=== PATIENT | male | born 1970 | race Caucasian/White ===

== ENCOUNTER → 2019-03-09 | Outpatient (CLI) | payer OTHER ==
[~2019-03-09] MED LIST: ACYC800; BUPR150T2; CYCL10 PO; ERYT.5TO OD; HYDACE5 PO; RXSULTRIDS PO; SULTRIDS PO
[2019-03-10 13:26] LABS: Stool Occult Bld Immuno 1 Negative (NEGATIVE); Stool Occult Bld Immuno 2 Negative (NEGATIVE)
== END | disposition home or self-care (01) ==
LOC: LAB EV 06:15
PROVIDERS: Internal Medicine Gastroenterology
DX: Z12.11 Encounter for screening for malignant neoplasm of colon (principal); K76.0 Fatty (change of) liver, not elsewhere classified; Z83.71 Family history of colonic polyps
CPT/HCPCS: G0328

== ENCOUNTER 2019-05-04 06:20 | Day surgery (SDC) | payer OTHER ==
[~2019-05-04] VITALS: Ht 177.8 cm; Wt 128.3 kg
[~2019-05-04 06:20] MED LIST changes: +Aspir 8181 MG PO; +Glucophage1000 MG PO; +Glucotrol Xl5 MG PO; +Indocin50 MG PO; +JARDIANCE10 MG PO
[2019-05-04] MEDS ORDERED: PRAV20 PO (06:42)
== END 2019-05-04 08:43 | disposition home or self-care (01) ==
LOC: ORSCSDS 06:20
PROVIDERS: Podiatrist Foot & Ankle Surgery
PROC: 0QSP04Z Reposition Left Metatarsal with Internal Fixation Device, Open Approach (ICD-10-PCS; principal; 2019-05-04 07:30)
PROC: 0MBT0ZZ Excision of Left Foot Bursa and Ligament, Open Approach (ICD-10-PCS; principal; 2019-05-04 07:30)
DX: M1A.9XX1 Chronic gout, unspecified, with tophus (tophi) (principal); M21.612 Bunion of left foot; E11.9 Type 2 diabetes mellitus without complications; K76.0 Fatty (change of) liver, not elsewhere classified; G47.33 Obstructive sleep apnea (adult) (pediatric); Z79.899 Other long term (current) drug therapy; Z79.84 Long term (current) use of oral hypoglycemic drugs; Z79.82 Long term (current) use of aspirin; E78.5 Hyperlipidemia, unspecified; E66.01 Morbid (severe) obesity due to excess calories; Z68.41 Body mass index [BMI] 40.0-44.9, adult
CPT/HCPCS: 82947; 88305; 89060; J0171; J0690; J2704; J3010; J7120

== ENCOUNTER 2023-08-28 16:55 | Emergency (ER) | payer OTHER ==
[~2023-08-28] VITALS: Ht 177.8 cm; Wt 113.4 kg
[~2023-08-28 16:55] MED LIST changes: +PRAV20 PO
[2023-08-28 18:05] LABS: BASOPHILS ABSOLUTE AUTO 0.09 K/mm3 (0.00-0.23); BASOPHILS PERCENT AUTO 1 % (0-2); EOSINOPHILS ABSOLUTE AUTO 0.22 K/mm3 (0.00-0.68); EOSINOPHILS PERCENT AUTO 3 % (0-6); Hematocrit 47.1 % (37.0-53.0); Hemoglobin 16.7 g/dL (13.5-17.5); IMMATURE GRAN ABSOLUTE AUTO 0.01 K/mm3 (0.00-0.10); IMMATURE GRAN PERCENT AUTO 0 % (0-1); LYMPHOCYTES ABSOLUTE AUTO 3.19 K/mm3 (0.84-5.20); LYMPHOCYTES PERCENT AUTO 42 % (21-46); MONOCYTES ABSOLUTE AUTO 0.67 K/mm3 (0.16-1.47); MONOCYTES PERCENT AUTO 9 % (4-13); Mean Corpuscular HGB 32.7 pg (26.0-34.0); Mean Corpuscular HGB Conc 35.5 g/dL (31.5-36.5); Mean Corpuscular Volume 92 fL (80-100); Mean Platelet Volume 10.1 fL (9.1-12.4); NEUTROPHILS ABSOLUTE AUTO 3.45 K/mm3 (1.96-9.15); NEUTROPHILS PERCENT AUTO 45 % (41-73); Platelet Count 174 K/mm3 (150-400); RDW Coefficient Variation 12.8 % (11.7-14.2); White Blood Cell Count 7.63 K/mm3 (4.00-11.30)
[2023-08-28] MEDS ORDERED: FEBUXOSTAT40 MG PO (18:22)
[2023-08-28] MEDS ORDERED: Ondansetron HCl 2 MG / ML 2ML Vial IV ONE (19:00)
[2023-08-28] MEDS ORDERED: HYDROmorphone HCl/Pf 1MG SYR IV ONE (19:00)
[2023-08-28 19:06] LABS: Albumin, Blood 4.6 g/dL (3.4-5.0); Albumin/Globulin Ratio 1.4 (0.8-1.8); Bilirubin, Total 0.7 mg/dL (0.1-1.0); Bun/Creatinine Ratio 22.3 (12.0-20.0); Calcium, Blood 9.5 mg/dL (8.5-10.1); Creatinine, Blood 0.94 mg/dL (0.60-1.20); Globulin, Blood 3.3 g/dL (2.2-4.0); Potassium, Blood 4.3 mmol/L (3.5-5.5); Total Protein, Blood 7.9 g/dL (6.4-8.2)
[2023-08-28] MEDS ORDERED: Ketorolac Tromethamine 30mg Vial IV ONE (19:15)
[2023-08-28] MEDS ORDERED: NS 1,000 ML IV SCH (19:15)
[2023-08-28] MEDS ORDERED: Tamsulosin HCl 0.4 MG Cap PO ONE (19:15)
[2023-08-28 20:19] LABS: Source, Urine Clean Catch
[2023-08-28 20:22] LABS: Bilirubin, Urine Neg (Neg); Blood, Urine 3+ (Neg); Glucose Qualitative, Urine 4+ (Neg); Ketones, Urine 4+ (Neg); Leukocyte Esterase, Urine Neg (Neg); Nitrite, Urine Neg (Neg); Protein, Urine 1+ (Neg); Urobilinogen, Urine NORM (Normal); pH, Urine 6.5 (5.0-8.0)
[2023-08-28 20:39] LABS: Appearance, Urine Clear (Clear); Color, Urine Yellow (P-Yellow)
[2023-08-28] MEDS ORDERED: Metoclopramide HCl 5MG / ML 2ML Vial IV ONE (20:40)
[2023-08-28] MEDS ORDERED: OxyCODONE 10/Acetamin 325 TABLET PO ONE (20:40)
[2023-08-28 20:45] LABS: Bacteria Not Seen /hpf; Squamous Epithelial Cells Not Seen /hpf (Few); White Blood Cells, Urine 0-2 /hpf (0-5)
[2023-08-28] MEDS ORDERED: TAMS.4ER PO (22:14)
[2023-08-28] MEDS ORDERED: OXAYDO5 M1 PO (22:14)
[2023-08-28] MEDS ORDERED: ONDA4ODT MM (22:14)
[2023-08-28 22:15] VITALS: BP 104/69
[2023-08-28] MEDS ORDERED: RX Prepack 2 Tabs Ondansetron ODT 4MG UD ONE (22:15)
[2023-08-28] MEDS ORDERED: RX Prepack 6 Tabs Oxycodone 5mg UD ONE (22:15)
== END 2023-08-29 01:06 | disposition home or self-care (01) ==
LOC: ER 16:55
PROVIDERS: Physician Assistant; Student in an Organized Health Care Education/Training Program
DX: N13.2 Hydronephrosis with renal and ureteral calculous obstruction (principal); Z79.899 Other long term (current) drug therapy
CPT/HCPCS: 74177; 80053; 81001; 85025; 96361; 96374-59; 96375; 99284-25; A9270; J1170; J1885; J2405; J2765; J7030; Q9967